=== PATIENT | male | born 1960 | race Asian ===

== ENCOUNTER 2016-10-28 08:45 | Outpatient (CLI) | payer BC ==
[2016-10-28 09:51] LABS: POTASSIUM 3.2 mmol/L (3.6-5.2); SODIUM 137 mmol/L (136-145)
[2016-10-28 16:45] LABS: PLATELET COUNT 455 K/uL (142-355)
== END 2016-10-28 19:09 | disposition home or self-care (01) ==
LOC: LABW 08:45
PROVIDERS: Internal Medicine Hematology & Oncology
DX: C25.0 Malignant neoplasm of head of pancreas (principal); C78.7 Secondary malignant neoplasm of liver and intrahepatic bile duct
CPT/HCPCS: 36415; 80053; 85027; 86316

== ENCOUNTER 2016-11-04 08:38 | Outpatient (CLI) | payer BC ==
[2016-11-04 09:09] LABS: PLATELET COUNT 316 K/uL (142-355)
[2016-11-04 09:32] LABS: SODIUM 132 mmol/L (136-145)
== END 2016-11-04 22:57 | disposition home or self-care (01) ==
LOC: LABW 08:38
PROVIDERS: Internal Medicine Hematology & Oncology
DX: C25.0 Malignant neoplasm of head of pancreas (principal); C78.7 Secondary malignant neoplasm of liver and intrahepatic bile duct
CPT/HCPCS: 36415; 80053; 85027

== ENCOUNTER 2016-11-11 08:30 | Outpatient (CLI) | payer BC ==
[2016-11-11 09:42] LABS: POTASSIUM 3.3 mmol/L (3.6-5.2); SODIUM 141 mmol/L (136-145)
[2016-11-11 09:52] LABS: PLATELET COUNT 264 K/uL (142-355)
== END 2016-11-11 23:32 | disposition home or self-care (01) ==
LOC: LABW 08:30
PROVIDERS: Internal Medicine Hematology & Oncology
DX: C25.0 Malignant neoplasm of head of pancreas (principal); C78.7 Secondary malignant neoplasm of liver and intrahepatic bile duct
CPT/HCPCS: 36415; 80053; 85027

== ENCOUNTER 2016-11-18 08:49 | Outpatient (CLI) | payer BC ==
[2016-11-18 09:34] LABS: PLATELET COUNT 171 K/uL (142-355)
[2016-11-18 10:10] LABS: SODIUM 135 mmol/L (136-145)
== END 2016-11-18 19:43 | disposition home or self-care (01) ==
LOC: LABW 08:49
PROVIDERS: Internal Medicine Hematology & Oncology
DX: C25.0 Malignant neoplasm of head of pancreas (principal); C78.7 Secondary malignant neoplasm of liver and intrahepatic bile duct
CPT/HCPCS: 36415; 80053; 85027

== ENCOUNTER 2016-11-25 08:22 | Outpatient (CLI) | payer BC ==
[2016-11-25 09:11] LABS: PLATELET COUNT 268 K/uL (142-355)
[2016-11-25 09:57] LABS: POTASSIUM 3.5 mmol/L (3.6-5.2); SODIUM 135 mmol/L (136-145)
== END 2016-11-25 20:14 | disposition home or self-care (01) ==
LOC: LABW 08:22
PROVIDERS: Internal Medicine Hematology & Oncology
DX: C25.0 Malignant neoplasm of head of pancreas (principal)
CPT/HCPCS: 36415; 80053; 85027

== ENCOUNTER 2016-12-02 09:11 | Outpatient (CLI) | payer BC ==
[2016-12-02 10:39] LABS: POTASSIUM 3.7 mmol/L (3.6-5.2); SODIUM 138 mmol/L (136-145)
[2016-12-02 11:33] LABS: PLATELET COUNT 311 K/uL (142-355)
== END 2016-12-02 10:11 | disposition home or self-care (01) ==
LOC: LABW 09:11
PROVIDERS: Internal Medicine Hematology & Oncology
DX: C25.0 Malignant neoplasm of head of pancreas (principal)
CPT/HCPCS: 36415; 80053; 85027

== ENCOUNTER 2016-12-09 09:25 | Outpatient (CLI) | payer BC ==
[2016-12-09 09:49] LABS: POTASSIUM 3.1 mmol/L (3.6-5.2); SODIUM 135 mmol/L (136-145)
[2016-12-09 10:01] LABS: PLATELET COUNT 334 K/uL (142-355)
== END 2016-12-09 23:39 | disposition home or self-care (01) ==
LOC: LABW 09:25
PROVIDERS: Internal Medicine Hematology & Oncology
DX: C25.0 Malignant neoplasm of head of pancreas (principal)
CPT/HCPCS: 36415; 80053; 85027

== ENCOUNTER 2016-12-16 09:13 | Outpatient (CLI) | payer BC ==
[2016-12-16 10:17] LABS: POTASSIUM 3.4 mmol/L (3.6-5.2); SODIUM 135 mmol/L (136-145)
[2016-12-16 10:22] LABS: PLATELET COUNT 261 K/uL (142-355)
== END 2016-12-16 19:21 | disposition home or self-care (01) ==
LOC: LABW 09:13
PROVIDERS: Internal Medicine Hematology & Oncology
DX: C25.0 Malignant neoplasm of head of pancreas (principal)
CPT/HCPCS: 36415; 80053; 85027

== ENCOUNTER 2016-12-30 09:48 | Outpatient (CLI) | payer BC ==
[2016-12-30 10:27] LABS: PLATELET COUNT 218 K/uL (142-355); POTASSIUM 3.5 mmol/L (3.6-5.2); SODIUM 138 mmol/L (136-145)
== END 2016-12-30 19:30 | disposition home or self-care (01) ==
LOC: LABW 09:48
PROVIDERS: Internal Medicine Hematology & Oncology
DX: C25.3 Malignant neoplasm of pancreatic duct (principal)
CPT/HCPCS: 36415; 80053; 85027

== ENCOUNTER 2017-01-13 09:25 | Outpatient (CLI) | payer BC ==
[2017-01-13 09:53] LABS: PLATELET COUNT 230 K/uL (142-355)
[2017-01-13 10:29] LABS: POTASSIUM 4.2 mmol/L (3.6-5.2); SODIUM 134 mmol/L (136-145)
== END 2017-01-13 19:14 | disposition home or self-care (01) ==
LOC: LABW 09:25
PROVIDERS: Internal Medicine Hematology & Oncology
DX: C25.0 Malignant neoplasm of head of pancreas (principal)
CPT/HCPCS: 36415; 80053; 85027

== ENCOUNTER 2017-01-27 09:14 | Outpatient (CLI) | payer BC ==
[2017-01-27 09:52] LABS: POTASSIUM 3.4 mmol/L (3.6-5.2); SODIUM 138 mmol/L (136-145)
[2017-01-27 09:56] LABS: PLATELET COUNT 160 K/uL (142-355)
== END 2017-01-27 19:18 | disposition home or self-care (01) ==
LOC: LABW 09:14
PROVIDERS: Internal Medicine Hematology & Oncology
DX: C25.0 Malignant neoplasm of head of pancreas (principal)
CPT/HCPCS: 36415; 80053; 85007; 85027